=== PATIENT | male | born 2000 | race Caucasian/White ===

== ENCOUNTER 2022-09-15 14:34 | Emergency (ER) | payer MEDICAID, OTHER ==
[~2022-09-15] VITALS: Ht 167.6 cm; Wt 73.0 kg
[2022-09-15 14:48] VITALS: BP 129/77
== END 2022-09-15 17:20 | disposition home or self-care (01) ==
LOC: ER 14:34
DX: R55 Syncope and collapse (principal); B34.9 Viral infection, unspecified; E86.0 Dehydration; D64.9 Anemia, unspecified
CPT/HCPCS: 99281